=== PATIENT | male | born 1970 | race Caucasian/White ===

== ENCOUNTER 2016-06-26 16:30 | Emergency (ER) | payer OTHER ==
[~2016-06-26] VITALS: Ht 188 cm; Wt 108.9 kg
--- NOTE | 2016-06-26 17:42 | ED INFLUENZA/URI COMPLAINT ---
History of Present Illness General Chief Complaint: Upper Respiratory Sx/Fever Stated Complaint: COUGH Source: patient Exam Limitations: no limitations Vital Signs & Intake/Output Vital Signs & Intake/Output Vital Signs Date Time Temp Pulse Resp B/P B/P Pulse O2 O2 Flow FiO2 Mean Ox Delivery Rate 06/26 1909 Room Air Room Air 06/26 1812 96 06/26 1638 98.1 73 20 136/84 94 Room Air Allergies Coded Allergies: No Known Allergies (06/26/16) Reconcile Medications Azithromycin (Zithromax) 250 MG TABLET 1 DP PO AD BRONCHITIS 2 the first day followed by 1 for days 2-5 Loratadine (Claritin) 10 MG TABLET 1 TAB PO DAILY ALLERGIES (Reported) Methylprednisolone. (Medrol) 4 MG TAB.DS.PK 1 DP PO AD BRONCHITIS 6 on day 1 then reduce by one tablet daily until gone Multivitamin (Multi-Day Vitamins) 1 EACH TABLET 1 TAB PO DAILY SUPPLEMENT ( Reported) Naproxen Sodium (Aleve) 220 MG CAPSULE 2 TAB PO DAILY PAIN/INFLAMMATION ( Reported) Omeprazole 20 MG TABLET.DR 1 TAB PO BID GI (Reported) Triage Note: TRIAGE: PT TO ER C/C NONPRODUCTIVE COUGH AND SOB. ONSET "A WHILE AGO" STATES "OFF AND ON FOR A COUPLE OF YEARS, IT JUST GETS BAD." HAS BEEN "BAD" X 2 WEEKS. DENIES FEVERS. AFEBRILE AT TRIAGE. SAW MD FOR SAME IN DECEMBER AND HAD NEGATIVE CHEST XRAY AT THAT TIME. S/O STATES "WHEN HE GETS THAT COUGHING HE CAN'T BREATHE". PT NOT COUGHING AT TRIAGE. HAS BEEN USING NEBULIZER AT HOME WITH SOME RELIEF NOTED. R/A SATS 94%, SPEAKING IN COMPLETE SENTENCES AT TRIAGE. Triage Nurses Notes Reviewed? yes Onset: Gradual Duration: worse persistent since (2 WEEKS) Timing: recent history Severity: moderate Severity Numbers: 6 Prior Episodes/Possible Cause: occassional episodes Modifying Factors: Improves With: immobilization. Worsens With: movement. HPI: Patient is a 46-year-old female presenting to the emergency department with chief complaint of reactive cough and shortness of breath as worse with exertion. This has been going on for the past several months. Patient has been seen and evaluated for this in other hospitals and they usually discharged him with courses of prednisone. Patient denying any upper respiratory congestion. He has been trying to take qstj-teu-obgyonh allergy medication with little relief. Denies any nausea or vomiting. No chest pain or palpitations. 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 He reports an episode of hemoptysis about 2 weeks ago. No fevers or chills. Denies any change in weight. No recent travel. No recent antibiotic use. He does have a nebulizer at home which helps minimally for the symptoms. Shortness of breath is worse with exertion or if he starts working at a quick during the day. Still eating and drinking without difficulty. Denies any trouble with urination or bowel habits. Denies any lower extremity edema. No recent surgery or travel. No family history of cardiac, pulmonary or blood disorders. (HARRY HURTADO) Past History Travel History Traveled to [place] past 21 day No Medical History Any Pertinent Medical History? see below for history Neurological: NONE EENT: NONE Cardiovascular: NONE Respiratory: NONE Gastrointestinal: NONE Hepatic: NONE Renal: NONE Musculoskeletal: NONE Psychiatric: NONE Endocrine: NONE Blood Disorders: NONE Cancer(s): NONE DOCTOR OF OSTEOPATHY/Reproductive: NONE Surgical History Surgical History: non-contributory Psychosocial History What is your primary language Syriac Tobacco Use: Never used ETOH Use: occasional use Illicit Drug Use: denies illicit drug use Family History Hx Contributory? No (HARRY HURTADO) Review of Systems Review of Systems Constitutional: Reports: no symptoms. Comments Review of systems: See HPI, All other systems negative. Constitutional, no chills fever or weight loss HEENT: No visual changes no sore throat no congestion Cardiovascular: No chest pain ,palpitation , orthopnea or ankle swelling Skin, no jaundice no rashes Respiratory: No sputum or hemoptysis GI: No nausea no vomiting : No dysuria No hematuria Muscle skeletal: no back pain, no neck pain, Neurologic: No numbness no confusion, no headaches Psych: No stress anxiety or depression,. Heme/endocrine: No bruising no bleeding no polyuria or polydipsia Immunology: No splenectomy or history of AIDS (HARRY HURTADO) Physical Exam Physical Exam General Appearance: well developed/nourished, no apparent distress, alert, awake , comfortable Ears, Nose, Throat: pharyngeal erythema (MILD) Comments: Well-developed well-nourished person in no acute distress HEENT: Normal EENT exam, extraocular motion intact, no nystagmus. Pupils equally round and reactive to light and accommodation. Nose is atraumatic. External auditory canal and Tympanic membranes clear. Pharynx is mildly erythematous.. No swelling or edema. No exudates. Neck: Supple, no lymphadenopathy, normal range of motion without pain or tenderness Back: Nontender Cardiovascular: Regular rate and rhythms no murmurs rubs or gallops, normal JVP Respiratory: Chest nontender. No respiratory distress.breath sounds slightly diminished to auscultation bilaterally, no crackles or wheezes appreciated. Abdomen: Soft, nontender nondistended, no appreciable organomegaly. Normal bowel sounds. No ascites, no rebound or guarding. Extremity: No edema, no calf tenderness to palpation, normal and equal pulses. Neuro: Alert oriented x3 Skin: No appreciable rash on exposed skin, skin is warm and dry. Psych: Mood and affect is normal, memory and judgment is normal. Core Measures Severe Sepsis Present: No Septic Shock Present: No (TOMMY LIU,HARRY) Progress Differential Diagnosis: influenza, pneumonia, pharyngitis, sinusitis, PNEUMONIA, BRONCHITIS, chf, CARDIAC DYSFUNCTION,ALLERGIC REACTION, PULMONARY DYSFUNCTION Plan of Care: Orders Procedure Date/time Status Telemetry/Bottling Supervisor 06/26 1758 Active TROPONIN LEVEL 06/26 1758 Complete PARTIAL THROMBOPLASTIN TIME 06/26 1758 Complete PROTHROMBIN TIME 06/26 1758 Complete D-DIMER 06/26 1758 Complete COMPREHENSIVE METABOLIC PANEL 06/26 1758 Complete CBC WITHOUT DIFFERENTIAL 06/26 1758 Complete B-TYPE NATRIURETIC PEP (BNP) 06/26 1758 Complete EKG 06/26 1758 Active Laboratory Tests 06/26/16 1829: Anion Gap 14, Estimated GFR > 60, BUN/Creatinine Ratio 18.8, Glucose 97, Calcium 9.2, Total Bilirubin 0.7, AST 23, ALT 35, Alkaline Phosphatase 86, Troponin I < 0.01, Xbn-F-Bwyslyrjtgi Pept 26.1, Total Protein 7.8, Albumin 4.4, Globulin 3.4, Albumin/Globulin Ratio 1.3, PT 10.8, INR 1.03, APTT 31, D-Dimer < 200, CBC w Diff NO MAN DIFF REQ, RBC 5.49, MCV 87.3, MCH 28.8, RDW 14.0, MPV 9.0, Gran % 55.8, Lymphocytes % 29.0, Monocytes % 9.1, Eosinophils % 5.8 H, Basophils % 0.3 , Absolute Granulocytes 3.9, Absolute Lymphocytes 2.0, Absolute Monocytes 0.6, Absolute Eosinophils 0.4, Absolute Basophils 0, PUBS MCHC 33.0 Diagnostic Imaging: Viewed by Me: Radiology Read, CT Scan. Discussed w/RAD: Radiology Read, CT Scan. Radiology Impression: PATIENT: NIESHA ADDISON PRESENT AGE: 46 PATIENT ACCOUNT NO: [id number] : 68 LOCATION: [facility] ORDERING PHYSICIAN: HARRY LIU SERVICE DATE: 06/26/16 EXAM TYPE: CAT - CTA CHEST-PULMONARY EMBOLISM EXAMINATION: CT ANGIOGRAM OF THE CHEST WITH AND WITHOUT CONTRAST (CT PULMONARY ANGIOGRAM FOR PE) CLINICAL INFORMATION: Reason for Study:
Presumptive Dx: RO PE
Signs Symptoms: SOB
COMPARISON: Same day chest x-ray TECHNIQUE: Prior to contrast administration, noncontrast localization images were obtained. Subsequently, multidetector volumetric imaging was performed from the thoracic inlet to below the diaphragms following the administration of 84 mL Optiray 320 intravenous contrast. No contrast reaction reported. Sagittal, coronal, and MIP oblique sagittal reformatted images were obtained on the CT workstation, uploaded to PACS, and reviewed. Total exam dose-length product 546.1 mGy-cm. FINDINGS: QUALITY OF STUDY/CONTRAST BOLUS: Satisfactory PULMONARY ARTERIES: No central or segmental pulmonary emboli. THORACIC AORTA: No aneurysm or dissection. LUNG: There is a small consolidation with associated air bronchograms within the right middle lobe. Otherwise, the lungs appear clear. There is mild bibasilar dependent atelectasis. No effusion. A small opacity is present within the lingula. There is a tiny fissural nodule at the left lung base measuring 0.4 cm (image 238, series 2). Findings most consistent with a lymph node. PLEURA: No pleural effusion or pneumothorax. MEDIASTINUM: Normal heart size. No pericardial effusion. No hilar or mediastinal lymphadenopathy. No evidence of septal bowing or right heart strain. CHEST WALL/AXILLA: No axillary or internal mammary lymphadenopathy. OSSEOUS STRUCTURES: No acute or suspicious osseous abnormality. UPPER ABDOMEN: Unremarkable. No reflux of contrast into the hepatic veins to suggest elevated right heart pressures. IMPRESSION: 1. No acute pulmonary embolism. 2. Small consolidation in the right middle lobe. Tiny consolidation versus atelectasis within the lingula. CXR Impression: RESENT AGE: 46 PATIENT ACCOUNT NO: [id number] : 66 LOCATION: [facility] ORDERING PHYSICIAN: HARRY LIU SERVICE DATE: 06/26/16 EXAM TYPE: RAD - XRY-CHEST XRAY, PA AND LATERAL EXAMINATION: XR CHEST CLINICAL INFORMATION: Cough and shortness of breath. COMPARISON: CXR from 2013 TECHNIQUE: 2 views of the chest were obtained. FINDINGS: Lungs are chronically hypoexpanded resulting in crowding of bronchovascular structures in the bases. There are some old, linear opacities of scarring or discoid atelectasis in each base. No acute airspace opacification or pleural effusion. Cardiac silhouette is normal in size. The hilar contours are normal. No hilar lymphadenopathy. There is an old, displaced, healed fracture of the mid right clavicle. IMPRESSION: 1. The hypoinflated lungs, and bibasilar atelectasis, are similar in appearance compared to 09/17/2013. 2. No acute cardiopulmonary abnormalities. DICTATED BY: PRISCILA SPEAR MD DATE/TIME DICTATED:06/26/161830 SURGICAL APPLIANCES SALESPERSON:EPHRAIM DATE/TIME TRANSCRIBED:06/26/161830 CONFIDENTIAL, DO NOT COPY WITHOUT APPROPRIATE AUTHORIZATION. <Electronically signed in Other Vendor System> SIGNED BY: PRISCILA SPEAR MD 06/26/161836 Initial ED EKG: SINUS RHYTHM 64 BPM, LEFT VENTRICULAR HYPERTROPTHY, LATERAL INFARCT, OLD Comments: Marlen oxygen saturation is 94%. Patient has improvement after albuterol treatment with peak flow. He'll follow up with pulmonology and cardiology. Started on antibiotics and steroids. (TOMMY LIU,HARRY) Departure Departure Time of Disposition: 2044 Disposition: HOME OR SELF CARE Condition: Stable Clinical Impression Primary Impression: Dyspnea Qualifiers: Dyspnea type: unspecified Qualified Code: R06.00 - Dyspnea, unspecified Secondary Impressions: Bronchitis Referrals: NEVAEH DE SANTIAGO,AYSHA (PCP/Family) YULY DE SANTIAGO,ROXIE JACOBO MD,CALDERON Additional Instructions: Follow-up with pulmonology and cardiology or giving contact names. Take course of steroids as prescribed. Take antibiotics as directed. Continue using nebulizer machine at home as directed. Return for worsening symptoms or concerns. Departure Forms: Customer Survey General Discharge Information Prescriptions: Current Visit Scripts Azithromycin (Zithromax) 1 DP PO AD #6 TAB 2 the first day followed by 1 for days 2-5 Methylprednisolone. (Medrol) 1 DP PO AD #1 DP 6 on day 1 then reduce by one tablet daily until gone (HARRY HURTADO) PA/RANGER AIDE Co-Sign Statement Statement: ED Attending supervision documentation- [] I saw and evaluated the patient. I have also reviewed all the pertinent lab results and diagnostic results. I agree with the findings and the plan of care as documented in the PA's/RANGER AIDE's documentation. [X] I have reviewed the ED Record and agree with the PA's/RANGER AIDE's documentation. [] Additions or exceptions (if any) to the PAs/RANGER AIDE's note and plan are summarized below: [] (GEORGIA DE SANTIAGO,ALISHA Kennedy)
--- NOTE | 2016-06-26 18:37 | RADIOLOGY REPORT ---
EXAMINATION: XR CHEST CLINICAL INFORMATION: Cough and shortness of breath. COMPARISON: CXR from 09/17/2013 TECHNIQUE: 2 views of the chest were obtained. FINDINGS: Lungs are chronically hypoexpanded resulting in crowding of bronchovascular structures in the bases. There are some old, linear opacities of scarring or discoid atelectasis in each base. No acute airspace opacification or pleural effusion. Cardiac silhouette is normal in size. The hilar contours are normal. No hilar lymphadenopathy. There is an old, displaced, healed fracture of the mid right clavicle. IMPRESSION: 1. The hypoinflated lungs, and bibasilar atelectasis, are similar in appearance compared to 09/17/2013. 2. No acute cardiopulmonary abnormalities.
[2016-06-26] MEDS ORDERED: ALEVE220 M1 PO (18:40)
[2016-06-26] MEDS ORDERED: MULTI-DAY VITA1 EACH PO (18:40)
[2016-06-26] MEDS ORDERED: OMEPRAZOLE20 M3 PO (18:40)
[2016-06-26] MEDS ORDERED: CLARITIN10 M1 PO (18:41)
[2016-06-26 18:59] LABS: ABSOLUTE BASOPHIL COUNT 0 /CUMM (0.0-0.2); ABSOLUTE EOSINOPHIL COUNT 0.4 /CUMM (0.0-0.7); ABSOLUTE GRANULOCYTE CT 3.9 /CUMM (1.4-6.5); ABSOLUTE MONOCYTE COUNT 0.6 /CUMM (0.10-0.60); BASOPHIL % 0.3 % (0.0-2.0); EOSINOPHIL % 5.8 % (0-5); GRANULOCYTE % 55.8 % (42.2-75.2); HEMATOCRIT 47.9 % (42-52); MEAN CORPUSCULAR HGB 28.8 PG (27.0-31.0); MEAN CORPUSCULAR VOLUME 87.3 FL (80.0-94.0); PLATELET COUNT 222 /CUMM (130-400); RED BLOOD CELL CT 5.49 /CUMM (4.70-6.10)
[2016-06-26 19:11] LABS: PT 10.8 SEC (9.4-12.5); PTT 31 SEC (25-37)
--- NOTE | 2016-06-26 20:39 | CT SCAN REPORT ---
EXAMINATION: CT ANGIOGRAM OF THE CHEST WITH AND WITHOUT CONTRAST (CT PULMONARY ANGIOGRAM FOR PE) CLINICAL INFORMATION: Reason for Study:
Presumptive Dx: RO PE
Signs Symptoms: SOB
COMPARISON: Same day chest x-ray TECHNIQUE: Prior to contrast administration, noncontrast localization images were obtained. Subsequently, multidetector volumetric imaging was performed from the thoracic inlet to below the diaphragms following the administration of 84 mL Optiray 320 intravenous contrast. No contrast reaction reported. Sagittal, coronal, and MIP oblique sagittal reformatted images were obtained on the CT workstation, uploaded to PACS, and reviewed. Total exam dose-length product 546.1 mGy-cm. FINDINGS: QUALITY OF STUDY/CONTRAST BOLUS: Satisfactory PULMONARY ARTERIES: No central or segmental pulmonary emboli. THORACIC AORTA: No aneurysm or dissection. LUNG: There is a small consolidation with associated air bronchograms within the right middle lobe. Otherwise, the lungs appear clear. There is mild bibasilar dependent atelectasis. No effusion. A small opacity is present within the lingula. There is a tiny fissural nodule at the left lung base measuring 0.4 cm (image 238, series 2). Findings most consistent with a lymph node. PLEURA: No pleural effusion or pneumothorax. MEDIASTINUM: Normal heart size. No pericardial effusion. No hilar or mediastinal lymphadenopathy. No evidence of septal bowing or right heart strain. CHEST WALL/AXILLA: No axillary or internal mammary lymphadenopathy. OSSEOUS STRUCTURES: No acute or suspicious osseous abnormality. UPPER ABDOMEN: Unremarkable. No reflux of contrast into the hepatic veins to suggest elevated right heart pressures. IMPRESSION: 1. No acute pulmonary embolism. 2. Small consolidation in the right middle lobe. Tiny consolidation versus atelectasis within the lingula. VTE: negative
[2016-06-26] MEDS ORDERED: ZITHROMAX250 M2 PO (20:47)
[2016-06-26] MEDS ORDERED: MEDROL4 M2 PO (20:47)
[2016-06-26 20:59] VITALS: BP 133/75
== END 2016-06-26 21:01 ==
LOC: ERH 16:30
PROVIDERS: Physician Assistant
DX: J40 Bronchitis, not specified as acute or chronic (principal)
CPT/HCPCS: 1263; 1395; 93005; 93010